=== PATIENT | female | born 1965 | race Caucasian/White ===

== ENCOUNTER → 2018-04-21 22:00 | Outpatient (CLI) | payer BC ==
[2009-09-15 03:05] VITALS: BMI 22.3
== END | disposition home or self-care (01) ==
LOC: D.MAMMO 15:30
DX: Z12.31 Encounter for screening mammogram for malignant neoplasm of breast (principal)

== ENCOUNTER 2019-03-05 09:57 | Emergency (ER) | payer BC ==
[~2019-03-05] VITALS: Ht 167.6 cm; Wt 77.3 kg
[2019-03-05 10:13] VITALS: BP 142/70; Ht 167.6 cm; Wt 77.3 kg
[2019-03-05] MEDS ORDERED: HYDROCODON-ACE1 EAC7 PO (12:52)
== END 2019-03-05 13:30 | disposition home or self-care (01) ==
LOC: D.ER 09:57
DX: S82.892A Other fracture of left lower leg, initial encounter for closed fracture (principal); W22.8XXA Striking against or struck by other objects, initial encounter; Y93.9 Activity, unspecified; Y92.9 Unspecified place or not applicable